=== PATIENT | female | born 1965 | race Two or more races ===

== ENCOUNTER 2016-05-07 22:22 | Inpatient (IN) | payer OTHER, SELFPAY ==
[~2016-05-07] VITALS: Ht 165.1 cm; Wt 69.0 kg
[~2016-05-07 22:22] MED LIST: /CELE20CA PO; /ESOM40CA; /GLYB5TA; /GLYB5TA OR; /METH500TA PO; ACET65TA; ACTO30TA PO; AMOX400S2; BUPROPION PO; COLA100C2 PO; DUCUSATE PO; GLUC1000; GLYBURIDE OR; LEVA500T; LIDO5DIS EX; METFORMIN OR; OMEP20TA7 OR; PRED10TA2; PROV90AE; TRAM50TA2 OR; VICO5TAB PO; VIT D; VYTO10TA5
[2016-05-07 23:29] LABS: MEAN CORPUSCULAR HEMOGLOBIN 27.3 pg (27.0-33.0); MEAN CORPUSCULAR HGB CONC 32.5 g/dl (32.0-36.5); MEAN CORPUSCULAR VOLUME 84.1 fl (80.0-96.0); RED CELL DISTRIBUTION WIDTH 15.5 % (11.5-14.5); WHITE BLOOD COUNT 12.3 K/mm3 (4.0-10.0)
[2016-05-08 00:06] LABS: ALBUMIN 4.2 GM/DL (3.2-5.2); ALBUMIN/GLOBULIN RATIO 1.17 (1.00-1.93); ALKALINE PHOSPHATASE 162 U/L (45-117); ALT/SGPT 76 U/L (12-78); ANION GAP 16 MEQ/L (8-16); AST/SGOT 43 U/L (15-37); BILIRUBIN,DIRECT 0.2 MG/DL (0.0-0.2); BILIRUBIN,TOTAL 0.4 MG/DL (0.2-1.0); BLOOD UREA NITROGEN 10 MG/DL (7-18); CALCIUM LEVEL 8.2 MG/DL (8.5-10.1); CARBON DIOXIDE LEVEL 19 MEQ/L (21-32); CHLORIDE LEVEL 102 MEQ/L (98-107); CREATININE FOR GFR 0.71 MG/DL (0.55-1.02); GLOMERULAR FILTRATION RATE > 60.0 (>58); GLUCOSE, FASTING 156 MG/DL (70-105); POTASSIUM SERUM 3.7 MEQ/L (3.5-5.1); SODIUM LEVEL 137 MEQ/L (136-145); TOTAL PROTEIN 7.8 GM/DL (6.4-8.2)
[2016-05-08 00:33] LABS: AMPHETAMINES LEVEL URINE NEGATIVE (NEGATIVE); BENZODIAZEPINES URINE NEGATIVE (NEGATIVE); COCAINE METABOLITE URINE NEGATIVE (NEGATIVE); CONTROL LINE INT CTR LINE PRESENT; METHADONE URINE NEGATIVE (NEGATIVE); OPIATES URINE NEGATIVE (NEGATIVE); TRICYCLIC ANTIDEPRESS URINE NEGATIVE (NEGATIVE)
[2016-05-08] MEDS ORDERED: ESTR62CR PV (09:25)
[2016-05-08] MEDS ORDERED: GLIP5TAB15 PO (09:25)
[2016-05-08] MEDS ORDERED: SING10TA32 PO (09:25)
[2016-05-08] MEDS ORDERED: HYDR1CAP25 PO (09:25)
[2016-05-08] MEDS ORDERED: JARD1TAB3 PO (09:25)
[2016-05-08] MEDS ORDERED: INSULANT SC (09:25)
[2016-05-08] MEDS ORDERED: GABA300C3 PO (09:25)
[2016-05-08] MEDS ORDERED: ATOR40TA PO (09:25)
[2016-05-08] MEDS ORDERED: NEXI40CA PO (09:25)
[2016-05-08] MEDS ORDERED: TRAZ10TA PO (09:25)
[2016-05-08] MEDS ORDERED: JANU100T PO (09:25)
[2016-05-08] MEDS ORDERED: PROZ20CA11 PO (09:25)
[2016-05-08] MEDS ORDERED: BENA25CA4 PO (09:25)
[2016-05-08] MEDS ORDERED: METF850T PO (09:25)
--- NOTE | 2016-05-08 10:19 | EDDOCDS ---
Physician Documentation [facility] Name: Alina Mccracken Age: 50 yrs Sex: Female : 1965 Arrival Date: 05/07/2016 Time: 22:22 Bed OBSERVATION Private MD: Disposition: 05/08/16 09:08 Hospitalization ordered by David Ponce for Inpatient Admission. Preliminary diagnosis is Major depressive disorder, recurrent, unspecified. - Bed requested for Admit. - Status is Inpatient Admission. jo3 - Condition is Stable. - Problem is new. - Symptoms are unchanged. Historical: - Home Meds: 1. Januvia 100 mg oral tab 1 tab once daily 2. Jardiance 25 mg oral tab 1 tab once daily 3. Nexium 40 mg Oral cpDR 1 cap once daily 4. metformin 850 mg Oral tab 1 tab 3 times per day 5. trazodone 100 mg Oral tab nightly 6. Singulair 10 mg Oral tab 1 tab once daily 7. Glucotrol XL 5 mg Oral tr24 1 tab once daily 8. hydroxyzine pamoate 25 mg Oral cap daily 9. gabapentin 300 mg Oral cap 1 cap 3 times per day 10. Prozac 20 mg Oral cap 1 cap once daily 11. Lipitor 40 mg Oral tab 1 tab once daily - PMHx: Anxiety; Diabetes - NIDDM: controlled; GERD; - Social history: No barriers to communication noted, The patient speaks fluent Georgian. - Family history: No immediate family members are acutely ill. - : The pt / caregiver states he / she is not on anticoagulants. Home medication list is obtained from the patient, pill bottles. - Exposure Risk Screening:: None identified. Vital Signs: 05/07 22:39 BP 126 / 63; Pulse 70; Resp 20; Temp 96.6(O); Pulse Ox 95% on R/A; Weight 68.95 kg / mcp 152.01 lbs (R); Height 5 ft. 5 in. (165.10 cm); Pain 0/10; 05/08 04:02 BP 129 / 71; Pulse 72; Resp 16; Temp 97.4(O); Pulse Ox 96% on R/A; Pain 0/10; rw1 09:27 BP 154 / 67; Pulse 66; Resp 18; Temp 97.2(O); Pulse Ox 98% on R/A; dpm 05/07 22:39 Body Mass Index 25.29 (68.95 kg, 165.10 cm) mcp MDM: 05/07 22:48 Consult PFS/PSA/Tubing Machine Tender ordered. le 22:48 Consult PFS/PSA/Tubing Machine Tender: Patient's case requires discussion with on-call le Psychiatrist ordered. 22:48 PSA/PFS to call Nursing Rec Therapist, to enter patient data on [place] Safe Act if patient le involuntarily admitted or transferred for SI or HI ordered. 22:48 Confirm accurate psychiatric medication list and times of last dosage ordered. le 22:48 Detain Pt Until Medically/PFS Cleared ordered. le 22:49 Acetaminophen Level Ordered. EDMS 22:49 Basic Metabolic Profile Ordered. EDMS 22:49 Complete Blood Count Ordered. EDMS 22:49 Drug Eval Toxicology ED Only Ordered. EDMS 22:49 Ethyl Alcohol (ethanol) Ordered. EDMS 22:49 Liver Profile Ordered. EDMS 22:49 Salicylate Level Ordered. EDMS 22:49 Thyroid Stimulating Hormone Ordered. EDMS 05/08 00:20 Acetaminophen Level Reviewed. le 00:20 Basic Metabolic Profile Reviewed. le 00:20 Complete Blood Count Reviewed. le 00:20 Ethyl Alcohol (ethanol) Reviewed. le 00:20 Liver Profile Reviewed. le 00:20 Salicylate Level Reviewed. le 00:20 Thyroid Stimulating Hormone Reviewed. le 03:49 Fingerstick Blood Sugar Ordered. EDMS 03:54 CONSISTENT CARBS-PLASTIC KAMARA+DIET ordered. EDMS 07:02 Consult PFS/PSA/Socail Worker: Cleared medically for eval ordered. br1 07:16 Fingerstick Blood Sugar Reviewed. br1 07:16 Drug Eval Toxicology ED Only Reviewed. br1 08:22 Consult PFS/PSA/Tubing Machine Tender complete. ac 08:22 Consult PFS/PSA/Tubing Machine Tender: Patient's case requires discussion with on-call ac Psychiatrist complete. 08:22 PSA/PFS to call Nursing Rec Therapist, to enter patient data on [place] Safe [place] if patient ac involuntarily admitted or transferred for SI or HI complete. 08:47 [facility] [place] Agreement was scanned into [employer] and attached to record. jls1 08:47 Financial registration complete. jls1 09:13 Admit to [facility]: ordered. EDMS 09:16 [facility] Legal paperwork was scanned into [employer] and attached to record. ac Signatures: Dispatcher [employer] EDMS Richard Sidney, RN Kia Astudillo, RN Cole Scott mcp, PSA PSA ac Rachele Ross RN RN jo3 Westcott, Lisa, Davidson Damon MD MD br1 Rachele Senior jls1 The chart was reviewed and I authenticate all verbal orders and agree with the evaluation and treatment provided.Attachments: 08:47 [facility] [place] Agreement jls1 MTDD
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
[2016-05-08 10:20] VITALS: BP 140/67
[2016-05-08] MEDS ORDERED: ACETAMINOPHEN TAB 650MG DOSE (2X325MG) PO PRN (12:00)
[2016-05-08] MEDS ORDERED: MOM 30ML SUSPENSION UDC PO PRN (12:00)
[2016-05-08] MEDS ORDERED: hydrOXYzine 50 MG TAB PO PRN (12:00)
[2016-05-08] MEDS ORDERED: traZODone 50 MG TAB PO PRN (12:00)
[2016-05-08] MEDS ORDERED: MAALOX 30 ML SUSP *UDC PO PRN (12:00)
[2016-05-08] MEDS: MULTIVITAMINS/MINERALS THERAP 1 TAB PO SCH (12:09)
[2016-05-08] MEDS: THIAMINE 100 MG TAB PO SCH ×2 (12:09→20:51)
[2016-05-08] MEDS: FOLIC ACID 1 MG TAB PO SCH (12:09)
[2016-05-08] MEDS ORDERED: NICOTINE POLACRILEX 2 MG GUM PO PRN (12:15)
[2016-05-08] MEDS: NICOTINE 14 MG/24 HR TRANSDERMAL TD SCH (16:36)
[2016-05-08] MEDS ORDERED: diphenhydrAMINE 25 MG CAP PO PRN (16:45)
[2016-05-08 18:00] VITALS: BP 125/72
[2016-05-08] MEDS: FLUoxetine 20 MG CAP PO SCH (18:14)
[2016-05-08] MEDS: metFORMIN 850 MG TAB PO SCH (20:51)
[2016-05-08] MEDS: GABAPENTIN 300 MG CAP PO SCH (20:51)
[2016-05-08] MEDS: LEVEMIR (INSULIN DETEMIR) 1 UNITS/0.01ML SC SCH (22:01)
[2016-05-09 06:00] VITALS: BP 91/51
[2016-05-09] MEDS: glipiZIDE XL 5 MG TABCR PO SCH (07:02)
[2016-05-09] MEDS: JARDIANCE 25 MG PO SCH (08:05)
[2016-05-09] MEDS: metFORMIN 850 MG TAB PO SCH ×3 (08:05→22:06)
[2016-05-09] MEDS: GABAPENTIN 300 MG CAP PO SCH ×3 (08:05→22:06)
[2016-05-09] MEDS: THIAMINE 100 MG TAB PO SCH ×2 (08:06→22:06)
[2016-05-09] MEDS: NICOTINE 14 MG/24 HR TRANSDERMAL TD SCH (08:06)
[2016-05-09] MEDS: FLUoxetine 20 MG CAP PO SCH (08:06)
[2016-05-09] MEDS: SITagliptin 50 MG TAB (JANUVIA) PO SCH (08:06)
[2016-05-09] MEDS: ATORVASTATIN 20 MG TAB PO SCH (08:06)
[2016-05-09] MEDS: FOLIC ACID 1 MG TAB PO SCH (08:06)
[2016-05-09] MEDS: MULTIVITAMINS/MINERALS THERAP 1 TAB PO SCH (08:06)
[2016-05-09] MEDS: PANTOPRAZOLE 40MG TAB (PROTONIX) PO SCH (08:06)
[2016-05-09] MEDS: MONTELUKAST 10 MG TAB PO SCH (08:06)
[2016-05-09] MEDS ORDERED: ESTROGENS VAGINAL CREAM 30GM PV SCH (09:00)
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
[2016-05-09 18:00] VITALS: BP 133/63
[2016-05-09] MEDS: LEVEMIR (INSULIN DETEMIR) 1 UNITS/0.01ML SC SCH (22:06)
[2016-05-10 06:34] VITALS: BP 87/52
[2016-05-10] MEDS: glipiZIDE XL 5 MG TABCR PO SCH (07:22)
--- NOTE | 2016-05-10 08:12 | IPNPDOC ---
[facility] Progress Note Progress Note DATE OF SERVICE: 05/10/16 HISTORY: . VITAL SIGNS: Please see below. NEW TEST RESULTS: . CURRENT MEDICATIONS: See below. MENTAL STATUS EXAMINATION: Patient is a -year old female, who is [pleasant, cooperative, well kempt], [tall , overweight, thin, elderly, obese, frail build]. Speech: Is [pressured, tangential, circumstantial, flight of ideas, rate, volume, articulate, coherent, and spontaneous]. Thought processes: [Clear, Not goal-directed or Goal directed.] Rate of thoughts: . Thought content: [Irrational, Logical, Illogical, Tangential, Paranoid]. Abstract reasoning: . Computation: . Associations: [Loose, Tangential, Circumstantial, Intact]. Abnormal or psychotic thoughts: [Hallucinations, Delusions, Preoccupation with violence, Homicidal or suicidal ideation, and Obsessions.] Judgment: [Fair, Good, Very limited, Poor.] Insight: [Very limited, Good, Fair, Poor] Oriented to: [Time, place and person.] Recent and Remote Memory: [Immediate, short-term and long-term memory is intact] . Attention Span and Concentration: [Poor, Good, Fair]. Language: [Normal]. Fund of knowledge: [Adequate, Intact, Poor, Fair, Good. Mood: [Irrational, Elated, Irritable, Depressed, Anxious, Restricted, Neutral]. Affect: [Appropriate, Reactive, Flat, Constricted, Animated, Irrational, Expansive, Restricted, Depressed, Anxious, Agitated, Hypomania, Lability].. DIAGNOSES: 1. . 2. . 3. . ASSESSMENT: . MANAGEMENT PLAN: . Vital Signs/I&O Vital Signs Date Time Temp Pulse Resp B/P Pulse Ox O2 Delivery O2 Flow Rate FiO2 05/10/16 06:34 96.6 51 16 87/52 05/08/16 10:20 Room Air Laboratory Data 24H Labs Laboratory Tests 2 05/09/16 11:58: Bedside Glucose (Misc Panel) 296H 05/09/16 17:11: Bedside Glucose (Misc Panel) 199H 05/09/16 22:04: Bedside Glucose (Misc Panel) 274H Current Medications Current Medications Acetaminophen (Tylenol) 650 mg Q6HP PRN PO HEADACHE or DISCOMFORT; Start at 12:00; Stop 06/07/16 at 11:59 Al Hydrox/Mg Hydrox/Simethicone (Mylanta) 30 ml Q4HP PRN PO HEARTBURN/ INDIGESTION; Start 05/08/16 at 12:00; Stop 06/07/16 at 11:59 Atorvastatin Calcium (Lipitor) 40 mg DAILY PO Last administered on 05/09/16 08 :06; Start 05/09/16 at 09:00; Stop 06/08/16 at 08:59 Diphenhydramine HCl (Benadryl) 25 mg DAILYPRN PRN PO HIVES; Start 05/08/16 at 16:45; Stop 06/07/16 at 16:44 Estrogens Conjugated (Premarin Vag Cream w/West) 1 dose daily x7da... DAILY PV ; Start 05/09/16 at 09:00; Stop 06/08/16 at 08:59; Status UNV Fluoxetine HCl (PROzac) 20 mg DAILY PO Last administered on 05/09/16 08:06; Start 05/08/16 at 09:00; Stop 06/07/16 at 08:59 Folic Acid (Folic Acid) 1 mg DAILY PO Last administered on 05/09/16 08:06; Start 05/08/16 at 09:00; Stop 06/07/16 at 08:59 Gabapentin (Neurontin) 300 mg TID PO Last administered on 05/09/16 22:06; Start 05/08/16 at 21:00; Stop 06/07/16 at 20:59 Glipizide (Glucotrol Xl) 5 mg DAILY@0730 PO Last administered on 05/10/16 07: 22; Start 05/09/16 at 07:30; Stop 06/08/16 at 07:29 Home Med (Med Rec Complete!) ASDIRECTED XX ; Start 05/08/16 at 09:30; Stop at 09:41; Status DC Hydroxyzine HCl (Atarax) 50 mg Q6HP PRN PO ANXIETY/AGITATION Last administered on 05/08/16 12:09; Start 05/08/16 at 12:00; Stop 06/07/16 at 11:59 Influenza Virus Vaccine (Fluzone Quadrivalent Pf Vaccine) 0.5 ml ONCE ONCE IM ; Start 05/10/16 at 09:00; Stop 05/10/16 at 09:01 Insulin Detemir (Levemir Insulin) 5 units QHS SC Last administered on 22:06; Start 05/08/16 at 21:00; Stop 06/07/16 at 20:59 Magnesium Hydroxide (Milk Of Magnesia) 30 ml DAILYPRN PRN PO CONSTIPATION; Start 05/08/16 at 12:00; Stop 06/07/16 at 11:59 Metformin HCl (Glucophage) 850 mg TID PO Last administered on 05/09/16 22:06; Start 05/08/16 at 21:00; Stop 06/07/16 at 20:59 Miscellaneous (Unresolved Clarification Entry) SEE LABEL COMMENTS UNRESOLVED XX ; Start 05/08/16 at 00:01; Stop 06/07/16 at 00:00 Montelukast Sodium (Singulair) 10 mg DAILY PO Last administered on 05/09/16 08 :06; Start 05/09/16 at 09:00; Stop 06/08/16 at 08:59 Multivitamins (Theragram-M) 1 tab DAILY PO Last administered on 05/09/16 08:06 ; Start 05/08/16 at 09:00; Stop 06/07/16 at 08:59 Nicotine (Nicoderm Cq 14mg) 1 patch DAILY TD Last administered on 05/09/16 08: 06; Start 05/08/16 at 09:00; Stop 06/07/16 at 08:59 Nicotine (Nicorette) 2 mg Q4HP PRN PO NICOTINE WITHDRAWAL Last administered on 05/08/16 12:29; Start 05/08/16 at 12:15; Stop 05/08/16 at 15:47; Status DC Pantoprazole Sodium (Protonix) 40 mg DAILY PO Last administered on 05/09/16 08 :06; Start 05/09/16 at 09:00; Stop 06/08/16 at 08:59 Patient Own Medication (Patient'S Own Med) Jardiance 25mg tab PO daily DAILY PO Last administered on 05/09/16 08:05; Start 05/09/16 at 09:00; Stop 06/08/16 at 08:59 Sitagliptin Phosphate (Januvia) 100 mg DAILY PO Last administered on 05/09/16 08:06; Start 05/09/16 at 09:00; Stop 06/08/16 at 08:59 Thiamine HCl (Thiamine HCl) 100 mg BID PO Last administered on 05/09/16 22:06 ; Start 05/08/16 at 09:00; Stop 05/11/16 at 08:59 Trazodone HCl (Desyrel) 100 mg QHSP PRN PO INSOMNIA Last administered on 22:07; Start 05/08/16 at 12:00; Stop 06/07/16 at 11:59 Allergies Coded Allergies: No Known Allergies (Verified Allergy, Unknown, 10/02/07) HARSHAL DE ANDA NP May 10, 2016 08:12
[2016-05-10] MEDS ORDERED: INFLUENZA QUADRIVALENT PF VACCINE 0.5ML SYRINGE/VIAL (90686) IM ONE (09:00)
[2016-05-10] MEDS: FOLIC ACID 1 MG TAB PO SCH (09:13)
[2016-05-10] MEDS: MULTIVITAMINS/MINERALS THERAP 1 TAB PO SCH (09:13)
[2016-05-10] MEDS: NICOTINE 14 MG/24 HR TRANSDERMAL TD SCH (09:13)
[2016-05-10] MEDS: PANTOPRAZOLE 40MG TAB (PROTONIX) PO SCH (09:14)
[2016-05-10] MEDS: SITagliptin 50 MG TAB (JANUVIA) PO SCH (09:14)
[2016-05-10] MEDS: ATORVASTATIN 20 MG TAB PO SCH (09:14)
[2016-05-10] MEDS: FLUoxetine 20 MG CAP PO SCH (09:14)
[2016-05-10] MEDS: metFORMIN 850 MG TAB PO SCH ×2 (09:14→15:46)
[2016-05-10] MEDS: GABAPENTIN 300 MG CAP PO SCH ×2 (09:14→15:46)
[2016-05-10] MEDS: THIAMINE 100 MG TAB PO SCH (09:14)
[2016-05-10] MEDS: MONTELUKAST 10 MG TAB PO SCH (09:15)
[2016-05-10] MEDS: JARDIANCE 25 MG PO SCH (09:15)
--- NOTE | 2016-05-10 11:20 | EDDOCDS ---
Physician Documentation [facility] Name: Alina Mccracken Age: 50 yrs Sex: Female : 1965 Arrival Date: 05/07/2016 Time: 22:22 Bed OBSERVATION Private MD: Disposition: 05/08/16 09:08 Hospitalization ordered by David Ponce for Inpatient Admission. Preliminary diagnosis is Major depressive disorder, recurrent, unspecified. - Bed requested for Admit. - Status is Inpatient Admission. jo3 - Condition is Stable. - Problem is new. - Symptoms are unchanged. Historical: - Home Meds: 1. Januvia 100 mg oral tab 1 tab once daily 2. Jardiance 25 mg oral tab 1 tab once daily 3. Nexium 40 mg Oral cpDR 1 cap once daily 4. metformin 850 mg Oral tab 1 tab 3 times per day 5. trazodone 100 mg Oral tab nightly 6. Singulair 10 mg Oral tab 1 tab once daily 7. Glucotrol XL 5 mg Oral tr24 1 tab once daily 8. hydroxyzine pamoate 25 mg Oral cap daily 9. gabapentin 300 mg Oral cap 1 cap 3 times per day 10. Prozac 20 mg Oral cap 1 cap once daily 11. Lipitor 40 mg Oral tab 1 tab once daily - PMHx: Anxiety; Diabetes - NIDDM: controlled; GERD; - Social history: No barriers to communication noted, The patient speaks fluent Ukrainian. - Family history: No immediate family members are acutely ill. - : The pt / caregiver states he / she is not on anticoagulants. Home medication list is obtained from the patient, pill bottles. - Exposure Risk Screening:: None identified. Vital Signs: 05/07 22:39 BP 126 / 63; Pulse 70; Resp 20; Temp 96.6(O); Pulse Ox 95% on R/A; Weight 68.95 kg / mcp 152.01 lbs (R); Height 5 ft. 5 in. (165.10 cm); Pain 0/10; 05/08 04:02 BP 129 / 71; Pulse 72; Resp 16; Temp 97.4(O); Pulse Ox 96% on R/A; Pain 0/10; rw1 09:27 BP 154 / 67; Pulse 66; Resp 18; Temp 97.2(O); Pulse Ox 98% on R/A; dpm 05/07 22:39 Body Mass Index 25.29 (68.95 kg, 165.10 cm) mcp MDM: 05/07 22:48 Consult PFS/PSA/Tax Accounting Assistant ordered. le 22:48 Consult PFS/PSA/Tax Accounting Assistant: Patient's case requires discussion with on-call le Psychiatrist ordered. 22:48 PSA/PFS to call Nursing Train Driver, to enter patient data on [place] Safe [place] if patient le involuntarily admitted or transferred for SI or HI ordered. 22:48 Confirm accurate psychiatric medication list and times of last dosage ordered. le 22:48 Detain Pt Until Medically/PFS Cleared ordered. le 22:49 Acetaminophen Level Ordered. EDMS 22:49 Basic Metabolic Profile Ordered. EDMS 22:49 Complete Blood Count Ordered. EDMS 22:49 Drug Eval Toxicology ED Only Ordered. EDMS 22:49 Ethyl Alcohol (ethanol) Ordered. EDMS 22:49 Liver Profile Ordered. EDMS 22:49 Salicylate Level Ordered. EDMS 22:49 Thyroid Stimulating Hormone Ordered. EDMS 05/08 00:20 Acetaminophen Level Reviewed. le 00:20 Basic Metabolic Profile Reviewed. le 00:20 Complete Blood Count Reviewed. le 00:20 Ethyl Alcohol (ethanol) Reviewed. le 00:20 Liver Profile Reviewed. le 00:20 Salicylate Level Reviewed. le 00:20 Thyroid Stimulating Hormone Reviewed. le 03:49 Fingerstick Blood Sugar Ordered. EDMS 03:54 CONSISTENT CARBS-PLASTIC KAMARA+DIET ordered. EDMS 07:02 Consult PFS/PSA/Socail Worker: Cleared medically for eval ordered. br1 07:16 Fingerstick Blood Sugar Reviewed. br1 07:16 Drug Eval Toxicology ED Only Reviewed. br1 08:22 Consult PFS/PSA/Tax Accounting Assistant complete. ac 08:22 Consult PFS/PSA/Tax Accounting Assistant: Patient's case requires discussion with on-call ac Psychiatrist complete. 08:22 PSA/PFS to call Nursing Train Driver, to [place] data [place] if patient ac involuntarily admitted or transferred for SI or HI complete. 08:47 [facility] [place] Agreement was scanned into [employer] and attached to record. jls1 08:47 Financial registration complete. jls1 09:13 Admit to [facility]: ordered. EDMS 09:16 [facility] Legal paperwork was scanned into [employer] and attached to record. ac 13:52 PCR was scanned into [employer] and attached to record. gb 14:50 T-Sheet-- Draft Copy was scanned into [employer] and attached to record. gb Signatures: Dispatcher [employer] Sidney Mercer, RN RN Kia Cormier RN RN mcp Isidro, Cole, PSA PSA ac Gloria Melton, Reg Reg Rachele Alexander RN RN jo3 Clarissa Croft, FAST FOOD WORKER FAST FOOD WORKER Davidson Bernard MD MD br1 Rachele Senior jls1 The chart was reviewed and I authenticate all verbal orders and agree with the evaluation and treatment provided.Attachments: 08:47 [facility] Payment Agreement jls1 14:50 T-Sheet-- Draft Copy gb Chart Complete MTDD
--- NOTE | 2016-05-10 11:20 | EDDOCDS ---
Physician Documentation [facility] Name: Alina Mccracken Age: 50 yrs Sex: Female : 1965 Arrival Date: 05/07/2016 Time: 22:22 Bed OBSERVATION Private MD: Disposition: 05/08/16 09:08 Hospitalization ordered by David Ponce for Inpatient Admission. Preliminary diagnosis is Major depressive disorder, recurrent, unspecified. - Bed requested for Admit. - Status is Inpatient Admission. jo3 - Condition is Stable. - Problem is new. - Symptoms are unchanged. Historical: - Home Meds: 1. Januvia 100 mg oral tab 1 tab once daily 2. Jardiance 25 mg oral tab 1 tab once daily 3. Nexium 40 mg Oral cpDR 1 cap once daily 4. metformin 850 mg Oral tab 1 tab 3 times per day 5. trazodone 100 mg Oral tab nightly 6. Singulair 10 mg Oral tab 1 tab once daily 7. Glucotrol XL 5 mg Oral tr24 1 tab once daily 8. hydroxyzine pamoate 25 mg Oral cap daily 9. gabapentin 300 mg Oral cap 1 cap 3 times per day 10. Prozac 20 mg Oral cap 1 cap once daily 11. Lipitor 40 mg Oral tab 1 tab once daily - PMHx: Anxiety; Diabetes - NIDDM: controlled; GERD; - Social history: No barriers to communication noted, The patient speaks fluent Sudanese. - Family history: No immediate family members are acutely ill. - : The pt / caregiver states he / she is not on anticoagulants. Home medication list is obtained from the patient, pill bottles. - Exposure Risk Screening:: None identified. Vital Signs: 05/07 22:39 BP 126 / 63; Pulse 70; Resp 20; Temp 96.6(O); Pulse Ox 95% on R/A; Weight 68.95 kg / mcp 152.01 lbs (R); Height 5 ft. 5 in. (165.10 cm); Pain 0/10; 05/08 04:02 BP 129 / 71; Pulse 72; Resp 16; Temp 97.4(O); Pulse Ox 96% on R/A; Pain 0/10; rw1 09:27 BP 154 / 67; Pulse 66; Resp 18; Temp 97.2(O); Pulse Ox 98% on R/A; dpm 05/07 22:39 Body Mass Index 25.29 (68.95 kg, 165.10 cm) mcp MDM: 05/07 22:48 Consult PFS/PSA/Orthoptist ordered. le 22:48 Consult PFS/PSA/Orthoptist: Patient's case requires discussion with on-call le Psychiatrist ordered. 22:48 PSA/PFS to call Nursing Shipping Order Clerk, to enter [place] data [place] if patient le involuntarily admitted or transferred for SI or HI ordered. 22:48 Confirm accurate psychiatric medication list and times of last dosage ordered. le 22:48 Detain Pt Until Medically/PFS Cleared ordered. le 22:49 Acetaminophen Level Ordered. EDMS 22:49 Basic Metabolic Profile Ordered. EDMS 22:49 Complete Blood Count Ordered. EDMS 22:49 Drug Eval Toxicology ED Only Ordered. EDMS 22:49 Ethyl Alcohol (ethanol) Ordered. EDMS 22:49 Liver Profile Ordered. EDMS 22:49 Salicylate Level Ordered. EDMS 22:49 Thyroid Stimulating Hormone Ordered. EDMS 05/08 00:20 Acetaminophen Level Reviewed. le 00:20 Basic Metabolic Profile Reviewed. le 00:20 Complete Blood Count Reviewed. le 00:20 Ethyl Alcohol (ethanol) Reviewed. le 00:20 Liver Profile Reviewed. le 00:20 Salicylate Level Reviewed. le 00:20 Thyroid Stimulating Hormone Reviewed. le 03:49 Fingerstick Blood Sugar Ordered. EDMS 03:54 CONSISTENT CARBS-PLASTIC KAMARA+DIET ordered. EDMS 07:02 Consult PFS/PSA/Socail Worker: Cleared medically for eval ordered. br1 07:16 Fingerstick Blood Sugar Reviewed. br1 07:16 Drug Eval Toxicology ED Only Reviewed. br1 08:22 Consult PFS/PSA/Orthoptist complete. ac 08:22 Consult PFS/PSA/Orthoptist: Patient's case requires discussion with on-call ac Psychiatrist complete. 08:22 PSA/PFS to call Nursing Shipping Order Clerk, to enter [place] if patient ac involuntarily admitted or transferred for SI or HI complete. 08:47 [facility] Payment Agreement was scanned into [employer] and attached to record. jls1 08:47 Financial registration complete. jls1 09:13 Admit to [facility]: ordered. EDMS 09:16 [facility] Legal paperwork was scanned into [employer] and attached to record. ac 13:52 PCR was scanned into [employer] and attached to record. gb 14:50 T-Sheet-- Draft Copy was scanned into [employer] and attached to record. gb Signatures: Dispatcher [employer] Sidney Mercer, RN RN Kia Cormier RN RN mcp Isidro, Cole, PSA PSA ac Gloria Melton, Reg Reg Rachele Alexander RN RN jo3 Clarissa Croft, INSIDE SALES ACCOUNT MANAGER INSIDE SALES ACCOUNT MANAGER Davidson Bernard MD MD br1 Rachele Senior jls1 The chart was reviewed and I authenticate all verbal orders and agree with the evaluation and treatment provided.Attachments: 08:47 [facility] Payment Agreement jls1 14:50 T-Sheet-- Draft Copy gb Chart Complete MTDD
[2016-05-10] MEDS ORDERED: FLUO20CA9 PO (11:21)
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
[2016-05-10] MEDS ORDERED: GLUC850T PO ×2 (15:58→16:10)
[2016-05-10] MEDS ORDERED: JARD1TAB3 PO (16:10)
[2016-05-10] MEDS ORDERED: NICO14DI3 TD (16:16)
[2016-05-10] MEDS ORDERED: INSUDET SC (16:17)
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
== END 2016-05-10 16:45 | disposition home or self-care (01) | DRG 882 ==
LOC: M ED 22:22 → M PSY 05-08 10:21
PROVIDERS: ADMIT Psychiatry & Neurology Psychiatry; ATTEND Psychiatry & Neurology Psychiatry
DX: F43.23 Adjustment disorder with mixed anxiety and depressed mood (principal); F10.24 Alcohol dependence with alcohol-induced mood disorder; F42.9 Obsessive-compulsive disorder, unspecified; F63.3 Trichotillomania; F10.229 Alcohol dependence with intoxication, unspecified; K21.9 Gastro-esophageal reflux disease without esophagitis; E11.9 Type 2 diabetes mellitus without complications; J45.909 Unspecified asthma, uncomplicated; Z79.4 Long term (current) use of insulin; E78.00 Pure hypercholesterolemia, unspecified; Z79.84 Long term (current) use of oral hypoglycemic drugs; Z79.899 Other long term (current) drug therapy

== ENCOUNTER 2016-09-13 13:17 | Emergency (ER) | payer OTHER ==
[~2016-09-13] VITALS: Ht 167.6 cm; Wt 69.4 kg
[~2016-09-13 13:17] MED LIST changes: +ATOR40TA PO; +BENA25CA4 PO; +ESTR62CR PV; +FLUO20CA9 PO; +GABA-282 PO; +GLIP5TAB15 PO; +GLUC850T PO; +HYDR1CAP25 PO; +INSUDET SC; +INSULANT SC; +JANU100T PO; +JARD1TAB3 PO; +METF850T PO; +NEXI40CA PO; +NICO14DI3 TD; +PROZ20CA11 PO; +SING10TA32 PO; +TRAZ10TA PO
[2016-09-13 14:39] LABS: BASO % 0.5 % (0.0-1.0); EOS # 0.1 K/mm3 (0.0-0.50); LARGE UNSTAINED CELL # 0.1 K/mm3 (0.0-0.4); LARGE UNSTAINED CELL % 1.5 % (0.0-4.0); LYMPH # 1.5 K/mm3 (1.5-4.5); LYMPH % 29.8 % (24.0-44.0); MEAN CORPUSCULAR HEMOGLOBIN 28.1 pg (27.0-33.0); MEAN CORPUSCULAR HGB CONC 33.5 g/dl (32.0-36.5); MONO # 0.3 K/mm3 (0.0-0.8); MONO % 5.3 % (0.0-5.0); NEUTROPHILS # 2.9 K/mm3 (1.8-7.7); NEUTROPHILS % 60.8 % (36.0-66.0); PLATELET COUNT, AUTOMATED 228 k/mm3 (150-450); RED CELL DISTRIBUTION WIDTH 14.4 % (11.5-14.5); WHITE BLOOD COUNT 4.8 K/mm3 (4.0-10.0)
[2016-09-13 15:07] LABS: ANION GAP 2 MEQ/L (8-16); BLOOD UREA NITROGEN 10 MG/DL (7-18); CALCIUM LEVEL 8.8 MG/DL (8.5-10.1); CARBON DIOXIDE LEVEL 33 MEQ/L (21-32); CHLORIDE LEVEL 99 MEQ/L (98-107); CREATININE FOR GFR 0.77 MG/DL (0.55-1.02); GLOMERULAR FILTRATION RATE > 60.0 (>58); GLUCOSE, FASTING 333 MG/DL (70-105); POTASSIUM SERUM 4.2 MEQ/L (3.5-5.1); SODIUM LEVEL 134 MEQ/L (136-145)
[2016-09-13] MEDS ORDERED: NS 1,000 ML IV ONE (15:30)
[2016-09-13] MEDS ORDERED: HUMULIN R U-500 KWIKPEN 500UNITS/ML 3ML SYRINGE (J1815 PER 5UNITS) SC ONE (15:30)
[2016-09-13] MEDS ORDERED: HumuLIN R (REGULAR) INSULIN (NovoLIN R) **100U/ML** PER UNIT SC ONE (15:45)
--- NOTE | 2016-09-13 15:47 | REP ---
Clinical: Right-sided weakness . Comparison: None . Findings: The ventricles, sulci, and cisterns are normal in position and appearance. Donnelly-white differentiation is maintained. No acute intracranial hemorrhage, mass/mass effect, pathology or trauma/injury. No evidence for acute infarction. No extra-axial fluid collection. Calvarium is intact. Paranasal sinuses and mastoid air cells are clear. Impression: Normal noncontrast head CT. No evidence for acute intracranial pathology or trauma/injury. Signed by Manny Andrews MD 09/13/2016 03:38 P
[2016-09-13 17:19] VITALS: BP 121/58
== END 2016-09-13 17:20 | disposition home or self-care (01) ==
LOC: M ED 14:17
DX: R42 Dizziness and giddiness (principal); E11.65 Type 2 diabetes mellitus with hyperglycemia; J45.909 Unspecified asthma, uncomplicated; M32.9 Systemic lupus erythematosus, unspecified; K21.9 Gastro-esophageal reflux disease without esophagitis; F42.9 Obsessive-compulsive disorder, unspecified; F41.9 Anxiety disorder, unspecified; F32.9 Major depressive disorder, single episode, unspecified; R26.9 Unspecified abnormalities of gait and mobility; F17.200 Nicotine dependence, unspecified, uncomplicated; Z79.899 Other long term (current) drug therapy; Z79.84 Long term (current) use of oral hypoglycemic drugs; Z79.4 Long term (current) use of insulin

== ENCOUNTER 2016-12-30 21:59 | Emergency (ER) | payer OTHER ==
[~2016-12-30] VITALS: Ht 165.1 cm; Wt 73.2 kg
[~2016-12-30 21:59] MED LIST changes: -ATOR40TA PO; +ATOR40TA75 PO; +FLUO20CA19 PO; -FLUO20CA9 PO; +GLIP1TAB49 PO; -GLIP5TAB15 PO; -METF850T PO; +METF850T4 PO
[2016-12-30 22:00] VITALS: BP 115/58
[2016-12-30] MEDS ORDERED: TYLE325T5 PO (22:45)
[2016-12-30] MEDS ORDERED: GUAI1SYP8 PO (22:45)
[2016-12-30] MEDS ORDERED: ACET30TAB PO (22:45)
[2016-12-30] MEDS ORDERED: EQL525SU4 PO (22:45)
[2016-12-30] MEDS ORDERED: CARB10TACH PO (22:45)
[2016-12-31] MEDS ORDERED: DIFL150T PO (00:44)
[2016-12-31] MEDS ORDERED: AUGM875T28 PO (00:44)
== END 2016-12-31 00:51 | disposition home or self-care (01) ==
LOC: M ED 21:59
DX: S61.211A Laceration without foreign body of left index finger without damage to nail, initial encounter (principal); W45.8XXA Other foreign body or object entering through skin, initial encounter; Y92.89 Other specified places as the place of occurrence of the external cause; Y93.89 Activity, other specified; Y99.8 Other external cause status; J01.90 Acute sinusitis, unspecified; E11.9 Type 2 diabetes mellitus without complications; Z87.891 Personal history of nicotine dependence

== ENCOUNTER 2017-01-24 01:43 | Emergency (ER) | payer OTHER ==
[~2017-01-24] VITALS: Ht 165.1 cm; Wt 72.7 kg
[~2017-01-24 01:43] MED LIST changes: +ACET30TAB PO; +AUGM875T28 PO; +CARB10TACH PO; +DIFL150T PO; +EQL525SU4 PO; +GUAI1SYP8 PO; +TYLE325T5 PO
[2017-01-24 02:03] VITALS: BP 121/75
== END 2017-01-24 04:47 | disposition left against medical advice (07) ==
LOC: M ED 01:43
DX: L98.9 Disorder of the skin and subcutaneous tissue, unspecified (principal); Z53.21 Procedure and treatment not carried out due to patient leaving prior to being seen by health care provider

== ENCOUNTER 2017-09-06 12:19 | Emergency (ER) | payer OTHER ==
[2017-09-06 14:07] LABS: BASO % 0.4 % (0.0-1.0); EOS % 0.6 % (0.0-3.0); HEMATOCRIT 41.3 % (36.0-47.0); HEMOGLOBIN 14.2 g/dl (12.0-15.5); IMMATURE GRANULOCYTE % 0.1 % (0-3.0); LYMPH # 1.2 10^3/uL (1.5-4.5); LYMPH % 17.9 % (24.0-44.0); MEAN CORPUSCULAR HEMOGLOBIN 28.1 pg (27.0-33.0); MEAN CORPUSCULAR HGB CONC 34.4 g/dl (32.0-36.5); MEAN CORPUSCULAR VOLUME 81.6 fl (80.0-96.0); MONO # 0.4 10^3/uL (0.0-0.8); MONO % 5.5 % (0.0-5.0); NEUTROPHILS # 5.2 10^3/uL (1.8-7.7); NEUTROPHILS % 75.5 % (36.0-66.0); PLATELET COUNT, AUTOMATED 252 10^3/uL (150-450); RED BLOOD COUNT 5.06 10^6/uL (4.00-5.40); RED CELL DISTRIBUTION WIDTH 14.1 % (11.5-14.5); WHITE BLOOD COUNT 6.9 10^3/uL (4.0-10.0)
[2017-09-06 14:09] LABS: KETONE, URINE AUTO RFX 1+ mg/dL (NEGATIVE); LEUKOCYTE ESTERASE UR AUTO RFX NEGATIVE (NEGATIVE); NITRITE, URINE AUTO RFX NEGATIVE (NEGATIVE); RBC, URINE AUTO RFX 1 /HPF (0-3); SPECIFIC GRAVITY UR AUTO RFX 1.029 (1.002-1.035); SQUAM EPITHELIAL CELL UR AURFX 2 /HPF (0-6); WBC, URINE AUTO RFX 1 /HPF (0-3)
[2017-09-06 14:11] LABS: VENOUS BASE EXCESS -0.1 (-2.0-2.0); VENOUS HCO3 24.8 MEQ/L (23.0-27.0); VENOUS O2 SATURATION 96.4 % (60.0-80.0); VENOUS PARTIAL PRESSURE CO2 41.2 mmHg (38.0-50.0); VENOUS PARTIAL PRESSURE O2 91.5 mmHg (30.0-50.0); VENOUS PH 7.397 UNITS (7.330-7.430); VENOUS STANDARD HCO3 24.4 MEQ/L
[2017-09-06 14:17] LABS: BEDSIDE GLUCOSE 392 MG/DL (70-105)
[2017-09-06] MEDS: HumuLIN R (REGULAR) INSULIN (NovoLIN R) **100U/ML** PER UNIT SC (14:17)
[2017-09-06] MEDS: NS 1,000 ML IV (14:18)
[2017-09-06] MEDS: ONDANSETRON 4MG/2ML VIAL (J2405) IV (14:18)
[2017-09-06 14:23] LABS: ACETONE/KETONE 3.83 MG/DL (<2.81); ANION GAP 7 MEQ/L (8-16); BLOOD UREA NITROGEN 10 MG/DL (7-18); CALCIUM LEVEL 8.8 MG/DL (8.5-10.1); CARBON DIOXIDE LEVEL 25 MEQ/L (21-32); CHLORIDE LEVEL 100 MEQ/L (98-107); CREATININE FOR GFR 0.93 MG/DL (0.55-1.30); GLOMERULAR FILTRATION RATE > 60.0 (>58); POTASSIUM SERUM 4.2 MEQ/L (3.5-5.1); SODIUM LEVEL 132 MEQ/L (136-145)
[2017-09-06 14:26] LABS: OSMOLALITY SERUM 296 MOSM/KG (275-295)
[2017-09-06 14:30] LABS: ESTIMATED AVERAGE GLUCOSE 246 MG/DL (60-110); HEMOGLOBIN A1c 10.2 %
[2017-09-06 14:42] LABS: BEDSIDE GLUCOSE 436 MG/DL (70-105)
[2017-09-06 14:44] LABS: GLUCOSE, FASTING 444 MG/DL (70-100)
[2017-09-06 15:44] LABS: BEDSIDE GLUCOSE 264 MG/DL (70-105)
== END 2017-09-06 16:34 | disposition home or self-care (01) ==
LOC: M ED 12:19
DX: E11.65 Type 2 diabetes mellitus with hyperglycemia (principal); E86.0 Dehydration; R11.2 Nausea with vomiting, unspecified; B37.3 Candidiasis of vulva and vagina; Z79.2 Long term (current) use of antibiotics; Z98.890 Other specified postprocedural states
CPT/HCPCS: J2405

== ENCOUNTER → 2018-06-21 | Outpatient (CLI) | payer OTHER ==
[~2018-06-21] MED LIST changes: +CETI10TA PO; +CHIL81CH2 PO; -GABA-282 PO; +GABA-843 PO; -GLIP1TAB49 PO; +GLIP5TAB20 PO; +JANU50TA25 PO; +OMEP20CA3 PO; +PRED10TA2 PO; +VALA500T5 PO; +VITA50005 PO; +ZOFR4TAB14 PO
--- NOTE | 2018-06-21 11:02 | REP ---
CHEST, TWO VIEWS: COMPARISON: 04/26/2018 and 11/15/2011 There is no evidence of acute infiltrate. No pleural effusion is seen. The heart is normal in size. The mediastinal silhouette is unremarkable. The visualized osseous structures are intact. There is mild calcification of the thoracic aorta. IMPRESSION: No acute pulmonary disease. Electronically Signed by Micah Donnelly MD 06/21/2018 11:00 P
== END ==
LOC: M LRY 10:33
PROVIDERS: ATTEND Physician Assistant
DX: R07.9 Chest pain, unspecified (principal)

== ENCOUNTER 2018-09-14 13:35 | Emergency (ER) | payer OTHER ==
[~2018-09-14] VITALS: Ht 167.6 cm; Wt 7.3 kg
[~2018-09-14 13:35] MED LIST changes: -/CELE20CA PO; -/ESOM40CA; -/GLYB5TA; -/GLYB5TA OR; -/METH500TA PO; +ACET-716 PO; -ACET30TAB PO; +ASPI-286 PO; +CELE1CAP4 PO; -CHIL81CH2 PO; +GLYB1TAB29; +GLYB1TAB29 OR; +METH1TAB40 PO; +NEXI1CAP3
[2018-09-14 14:52] LABS: BASO % 0.3 % (0.0-1.0); EOS # 0.1 10^3/uL (0.0-0.50); HEMATOCRIT 43.1 % (36.0-47.0); HEMOGLOBIN 14.5 g/dl (12.0-15.5); LYMPH # 1.6 10^3/uL (1.5-4.5); MEAN CORPUSCULAR HEMOGLOBIN 27.6 pg (27.0-33.0); MEAN CORPUSCULAR HGB CONC 33.6 g/dl (32.0-36.5); MEAN CORPUSCULAR VOLUME 82.1 fl (80.0-96.0); MONO # 0.3 10^3/uL (0.0-0.8); MONO % 4.7 % (0.0-5.0); NEUTROPHILS # 4.8 10^3/uL (1.8-7.7); NEUTROPHILS % 69.7 % (36.0-66.0); PLATELET COUNT, AUTOMATED 252 10^3/uL (150-450); RED BLOOD COUNT 5.25 10^6/uL (4.00-5.40); WHITE BLOOD COUNT 6.8 10^3/uL (4.0-10.0)
[2018-09-14 15:11] LABS: ALBUMIN 3.5 GM/DL (3.2-5.2); ALT/SGPT 39 U/L (12-78); BILIRUBIN,DIRECT 0.1 MG/DL (0.0-0.2); BILIRUBIN,TOTAL 0.5 MG/DL (0.2-1.0); BLOOD UREA NITROGEN 7 MG/DL (7-18); CALCIUM LEVEL 8.6 MG/DL (8.5-10.1); CARBON DIOXIDE LEVEL 26 MEQ/L (21-32); CHLORIDE LEVEL 102 MEQ/L (98-107); CREATININE FOR GFR 0.71 MG/DL (0.55-1.30); GLOMERULAR FILTRATION RATE > 60.0 (>51); GLUCOSE, FASTING 154 MG/DL (70-100); HCG, SERUM QUANTITATIVE 2 MIU/ML; LIPASE 144 U/L (73-393); SODIUM LEVEL 137 MEQ/L (136-145); TOTAL PROTEIN 7.2 GM/DL (6.4-8.2)
[2018-09-14] MEDS ORDERED: REGL5TAB2 PO (17:42)
[2018-09-14] MEDS ORDERED: METOCLOPRAMIDE 10 MG TAB PO ONE (17:45)
[2018-09-14 17:59] VITALS: BP 127/68
--- NOTE | 2018-09-14 18:06 | REP ---
Clinical: Transient ischemic attack . Comparison: 04/26/2018 . Findings: The ventricles, sulci, and cisterns are normal in position and appearance. Donnelly-white differentiation is maintained. No acute intracranial hemorrhage, mass/mass effect, pathology or trauma/injury. No evidence for acute infarction. No extra-axial fluid collection. Calvarium is intact. Paranasal sinuses and mastoid air cells are clear. Impression: Normal noncontrast head CT. No evidence for acute intracranial pathology or trauma/injury. Electronically Signed by Manny Andrews MD 09/14/2018 05:58 P
== END 2018-09-14 18:00 | disposition home or self-care (01) ==
LOC: M ED 13:35
DX: R51 Headache (principal); H02.9 Unspecified disorder of eyelid; R10.31 Right lower quadrant pain; G51.0 Bell's palsy; E11.9 Type 2 diabetes mellitus without complications; I50.30 Unspecified diastolic (congestive) heart failure; K21.9 Gastro-esophageal reflux disease without esophagitis; E78.5 Hyperlipidemia, unspecified; F42.9 Obsessive-compulsive disorder, unspecified; Z72.89 Other problems related to lifestyle; Z79.899 Other long term (current) drug therapy; Z79.82 Long term (current) use of aspirin; Z79.4 Long term (current) use of insulin